=== PATIENT | female | born 1985 | race Caucasian/White ===

== ENCOUNTER 2021-02-23 18:19 | Emergency (ER) | payer OTHER ==
[~2021-02-23] VITALS: Ht 167.6 cm; Wt 125.4 kg
--- NOTE | 2021-02-23 18:40 | PHYS DOC ---
General Adult EDM: Chief Complaint: ABDOMINAL PAIN HPI: HPI: Patient is a 35-year-old female who presents to the emergency department for chronic right upper quadrant pain. Pain does not radiate. She rates it 7 out of 10. She describes it as a stabbing pain. Patient reports that she has a history of constipation her last bowel movement was yesterday. Patient denies vomiting, diarrhea, fevers, urinary symptoms. Patient reports that she receives double celiac plexus blocks for neuropathic pain. (FROYLAN BARRAZA APRN) Review of Systems: Review of Systems: 14 body systems of the review of systems have been reviewed. See HPI for perti nent positive and negative responses, otherwise all other systems are negative, nonpertinent or noncontributory (FROYLAN BARRAZA APRN) Physical Exam: PE: Constitutional: Well developed, well nourished, no acute distress, non-toxic appearance. [] HENT: Normocephalic, atraumatic, bilateral external ears normal, oropharynx moist, no oral exudates, nose normal. [] Eyes: PERRL, EOMI, conjunctiva normal, no discharge. [] Neck: Normal range of motion, no stridor Cardiovascular:Heart rate regular rhythm, no murmur [] Lungs & Thorax: Bilateral breath sounds clear to auscultation [] Abdomen: Bowel sounds normal, soft, obese, right upper quadrant pain with palpation, negative Travis sign, no masses, no pulsatile masses. [] Skin: Warm, dry, no erythema, no rash. [] Back: No tenderness, no CVA tenderness. [] Extremities: No tenderness, no cyanosis, no clubbing, ROM intact, no edema. [] Neurologic: Alert and oriented X 3, normal motor function, normal sensory function, no focal deficits noted. [] Psychologic: Affect normal, judgement normal, mood normal. [] (FROYLAN BARRAZA APRN) EKG: EKG: [] (FROYLAN BARRAZA APRN) Radiology/Procedures: Radiology/Procedures: [] (FROYLAN BARRAZA APRN) Heart Score: C/O Chest Pain: N/A Risk Factors: Risk Factors: DM, Current or recent (<one month) smoker, HTN, HLP, family history of CAD, obesity. Risk Scores: Score 0 - 3: 2.5% MACE over next 6 weeks - Discharge Home Score 4 - 6: 20.3% MACE over next 6 weeks - Admit for Clinical Observation Score 7 - 10: 72.7% MACE over next 6 weeks - Early Invasive Strategies (FROYLAN BARRAZA APRN) Course & Med Decision Making: Course & Med Decision Making Pertinent Labs and Imaging studies reviewed. (See chart for details) [] Patient presents to the emergency department for chronic right upper quadrant pain with nausea. Work-up in the ER consisted of blood work, CT imaging of abdomen, urinalysis and EKG. 1849: labs in process at this time. I discussed patients case with Aysha GLUE SIZE MACHINE OPERATOR and care transferred at this time 185 (FROYLAN BARRAZA APRN) Course & Med Decision Making Did not see or evaluate patient. Did not discuss patient with GLUE SIZE MACHINE OPERATOR. Agree with GLUE SIZE MACHINE OPERATOR's work-up and disposition per note. (ROD CORDON MD) Dragon Disclaimer: Dragon Disclaimer: This electronic medical record was generated, in whole or in part, using a voice recognition dictation system. (FROYLAN BARRAZA APRN) Departure Departure: Referrals: TODD HUMPHREY (PCP) FROYLAN BARRAZA APRN Feb 23, 2021 18:39 ROD CORDON MD Feb 23, 2021 20:08
[2021-02-23] MEDS ORDERED: IV NORMAL SALINE 1,000ML 1,000 ML IV ONE (18:45)
--- NOTE | 2021-02-23 19:08 | EKG ---
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
[2021-02-23] MEDS ORDERED: IOHEXOL 300 MG/ML 75 ML VIAL. IV ONE (19:15)
[2021-02-23] MEDS ORDERED: CONTRAST GIVEN. MC PRN (19:30)
[2021-02-23 19:42] LABS: CALCIUM 8.8 mg/dL (8.5-10.1); CREATININE 0.7 mg/dL (0.6-1.0); GFR 95.2; POTASSIUM 3.9 mmol/L (3.5-5.1)
[2021-02-23 19:43] LABS: BASO % 1 % (0-3); EOS # 0.2 x10^3/uL (0.0-0.7); EOS % 3 % (0-3); HEMATOCRIT 36.8 % (36.0-47.0); HEMOGLOBIN 12.4 g/dL (12.0-15.5); LYMPH # 2.1 x10^3/uL (1.0-4.8); LYMPH % 23 % (24-48); MEAN CORPUSCULAR HEMOGLOBIN 30 pg (25-35); MEAN CORPUSCULAR HGB CONC 34 g/dL (31-37); MEAN CORPUSCULAR VOLUME 89 fL (79-100); MONO # 0.5 x10^3/uL (0.0-1.1); MONO % 6 % (0-9); NEUT # 6.1 x10^3uL (1.8-7.7); NEUT % 68 % (31-73); PLATELET COUNT 363 x10^3/uL (140-400); RED BLOOD COUNT 4.12 x10^6/uL (3.50-5.40); RED CELL DISTRIBUTION WIDTH 14.3 % (11.5-14.5); WHITE BLOOD COUNT 8.9 x10^3/uL (4.0-11.0)
[2021-02-23 19:48] LABS: ALBUMIN/GLOBULIN RATIO 0.8 (1.0-1.7); TOTAL BILIRUBIN 0.2 mg/dL (0.2-1.0); TOTAL PROTEIN 6.9 g/dL (6.4-8.2)
--- NOTE | 2021-02-23 20:18 | RAD ---
CT ABDOMEN+PELVIS W History: ruq pain Comparison: None. Technique: After administration of intravenous contrast, helical CT of the abdomen and pelvis was per formed from the lung bases through the ischial tuberosities. Coronal and sagittal reconstructions wer e obtained. 75 mL of Omnipaque 300 were used. One or more of the following dose reduction techniques were utilized: Automated exposure control (AEC), Adjustment of mA and/or kV according to patient size , Use of iterative reconstruction technique such as ASiR, CT scan done according to ALARA and image g ently/image wisely Abdomen Findings: The visualized lung bases are clear. The liver, pancreas, spleen, and bilateral adrenal glands are normal. Cholecystectomy. Symmetric renal enhancement. There is no focal renal mass. There is no hydronephrosis. Postsurgical changes of Lorenzo-en-Y gastric bypass. Very short segment enteroenteric intussusception at the jejunojejunal anastomosis. No evidence of obstruction. No mesenteric twisting. Moderate colonic stool burden. Normal appendix. Mild central mesenteric edema. There is no mesenteric or retroperitoneal adenopathy. The abdominal aorta is normal in caliber. Pelvis Findings: Urinary bladder is normal. Hysterectomy. No pelvic free fluid. There is no pelvic or inguinal adenopa thy. There is no acute bony abnormality. IMPRESSION: 1. Postsurgical changes of Lorenzo-en-Y gastric bypass. Very short segment enteroenteric intussusception at the jejunojejunal anastomosis, which may be transient. No evidence of obstruction. 2. Mild nonspecific central mesenteric edema. No mesenteric twisting to suggest internal hernia, but clinical correlation is advised. 3. Cholecystectomy. Hysterectomy. Electronically signed by: Carmelo Juan MD (02/23/2021 8:15 PM) [facility]
--- NOTE | 2021-02-23 20:23 | RAD ---
EXAM: XR CHEST 1V 02/23/2021 7:14 PM CLINICAL INDICATION: Right upper quadrant pain, COMPARISON: None TECHNIQUE: PA view of the chest FINDINGS: The heart is normal in size. Lungs are slightly hypoexpanded. No consolidation, pleural ef fusion, or pneumothorax. No pulmonary edema. No acute osseous abnormality. IMPRESSION: No acute cardiopulmonary abnormality. Electronically signed by: Moon Hernandez MD (02/23/2021 8:20 PM) [facility]
[2021-02-23] MEDS ORDERED: HYDR-2155 PO (21:06)
[2021-02-23] MEDS ORDERED: ONDA4TAB7 PO (21:07)
[2021-02-23 21:14] LABS: BILIRUBIN,URINE NEG (NEG); CLARITY,URINE CLEAR; COLOR,URINE YELLOW; GLUCOSE,URINE NEG (NEG); NITRITE,URINE NEG (NEG); UROBILINOGEN,URINE 0.2 mg/dL (0.2 mg/dL); WBC,URINE 0 /HPF (0-4)
[2021-02-23 21:15] VITALS: BP 123/79
[2021-02-23 21:15] LABS: BACTERIA,URINE FEW /HPF (0-FEW); SQUAMOUS EPITHELIAL CELL,UR MOD /LPF; YEAST,URINE PRESENT /HPF
== END 2021-02-23 21:17 | disposition home or self-care (01) ==
LOC: ER 18:19
DX: R10.11 Right upper quadrant pain (principal); G89.29 Other chronic pain; R11.0 Nausea
CPT/HCPCS: 36415; 71045; 74177; 80053; 81001; 83690; 85025; 93005; 96361; 96374; 96376; 99285; J3010; J7030; Q9967